=== PATIENT | female | born 1990 | race Caucasian/White ===

== ENCOUNTER 2020-05-18 08:54 | Emergency (ER) | payer OTHER ==
[~2020-05-18] VITALS: Ht 162.6 cm; Wt 82.7 kg
[2020-05-18] MEDS ORDERED: ACETAMINOPHEN 325 MG TABLET ONE (09:14)
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
[2020-05-18] MEDS ORDERED: ACETAMINOPHEN 325 MG TABLET PO ONE (09:30)
--- NOTE | 2020-05-18 10:00 | NUR ---
PT TO RADIOLOGY AT THIS TIME.
[2020-05-18 10:23] VITALS: BP 137/84
--- NOTE | 2020-05-18 11:25 | NUR ---
LATE ENTRY FOR 1125, D/T PATIENT CARE: SAMANTHA PASCAL AT BEDSIDE TO UPDATE PT WITH RESULTS AND POC, HEAD CT RESULTS DISCUSSED WITH PT BY SAMANTHA PASCAL.
[2020-05-18] MEDS ORDERED: KETOROLAC 30 MG/1 ML IM ONE (11:30)
[2020-05-18] MEDS ORDERED: METHOCARBAMOL 750 MG TABLET PO ONE (11:30)
[2020-05-18] MEDS ORDERED: KETOROLAC 30 MG/1 ML ONE (11:54)
[2020-05-18] MEDS ORDERED: METHOCARBAMOL 750 MG TABLET ONE (11:54)
--- NOTE | 2020-05-18 12:23 | NUR ---
PT MEDICATED PER EMAR, TOLERATED WELL. PT GIVEN DC INSTRUCTIONS AND SCRIPT, EDUCATED REGADRING RX FOR NAPROXEN AND ROBAXAN. PT IS A&O, RESPS EVEN AND UNLABORED, NSR ON R D INTERN WITH NO ECTOPY NOTED. PT AMBULATORY TO DC DESK WITH STEADY GAIT, ACCOMPANIED BY MOTHER WHO IS TO DRIVE HER HOME. PT EDUCATED NOT TO DRIVE TODAY D/T MED GIVEN.
== END 2020-05-18 12:18 | disposition home or self-care (01) ==
LOC: ED 09:51
DX: S39.012A Strain of muscle, fascia and tendon of lower back, initial encounter (principal); S29.012A Strain of muscle and tendon of back wall of thorax, initial encounter; S16.1XXA Strain of muscle, fascia and tendon at neck level, initial encounter; S09.90XA Unspecified injury of head, initial encounter; Z85.841 Personal history of malignant neoplasm of brain; V49.49XA Driver injured in collision with other motor vehicles in traffic accident, initial encounter; Y93.89 Activity, other specified; Y92.410 Unspecified street and highway as the place of occurrence of the external cause; Y99.8 Other external cause status
CPT/HCPCS: 70450; 72072; 72110; 72125; 96372; 99285; J1885

== ENCOUNTER 2021-03-03 20:47 | Outpatient (CLI) | payer OTHER ==
[~2021-03-03] VITALS: Ht 162.6 cm; Wt 100.9 kg
[2021-03-03] MEDS ORDERED: ACETAMINOPHEN 500 MG TABLET ONE (21:17)
[2021-03-03 21:29] VITALS: BP 141/85
[2021-03-03] MEDS ORDERED: ACETAMINOPHEN 500 MG TABLET PO PRN (21:30)
[2021-03-03] MEDS ORDERED: PLEASE ENTER HEIGHT AND WEIGHT MC SCH (21:30)
[2021-03-03 21:42] LABS: BASOPHILS % (AUTO) 1 % (0-1); EOSINOPHILS % (AUTO) 1 % (1-7); LYMPHOCYTES % (AUTO) 17 % (22-44); MONOCYTES % (AUTO) 8 % (2-9); NEUTROPHILS % (AUTO) 74 % (42-75); PLATELET COUNT 206 x10^3/uL (130-400); RED CELL DISTRIBUTION WIDTH 14.6 % (9.6-15.2)
[2021-03-03 21:49] LABS: ALANINE AMINOTRANSFERASE 23 U/L (12-78); ALBUMIN 2.4 g/dL (3.4-5.0); ANION GAP 9 mmol/L (5-15); BILIRUBIN, DIRECT 0.1 mg/dL (0.1-0.2); CALCIUM 8.9 mg/dL (8.5-10.1); CHLORIDE 109 mmol/L (98-107); CREATININE 0.72 mg/dL (0.55-1.02)
[2021-03-03 21:50] LABS: MICROSCOPIC INDICATED
[2021-03-03 21:51] LABS: ALKALINE PHOSPHATASE 87 U/L (45-117); BILIRUBIN,TOTAL 0.3 mg/dL (0.2-1.0); TOTAL PROTEIN 6.3 g/dL (6.4-8.2)
[2021-03-03] MEDS ORDERED: ONDANSETRON ODT 4 MG ONE (22:41)
[2021-03-03] MEDS ORDERED: ONDANSETRON ODT 4 MG PO ONE (23:00)
== END 2021-03-03 22:50 | disposition home or self-care (01) ==
LOC: LDOP 20:47
PROVIDERS: ATTEND Obstetrics & Gynecology
DX: O36.8130 Decreased fetal movements, third trimester, not applicable or unspecified (principal); R10.9 Unspecified abdominal pain; Z90.49 Acquired absence of other specified parts of digestive tract; Z3A.34 34 weeks gestation of pregnancy
CPT/HCPCS: 36415; 59025; 76815; 80053; 81001; 82248; 82570; 84156; 84550; 85025; 87086; Q0162

== ENCOUNTER 2021-04-05 09:48 | Inpatient (IN) | payer OTHER ==
[~2021-04-05] VITALS: Ht 162.6 cm; Wt 105.0 kg
[2021-04-06] MEDS ORDERED: TERBUTALINE 1 MG/ML, 1ML SQ PRN (03:30)
[2021-04-06] MEDS ORDERED: LACTATED RINGERS 1,000 ML IV SCH ×2 (03:30→11:30)
[2021-04-06] MEDS ORDERED: ONDANSETRON 2MG/ML, 2ML IVPush PRN ×2 (03:30→20:30)
[2021-04-06] MEDS ORDERED: FENTANYL PF 100 MCG/2ML IVPush PRN (03:30)
[2021-04-06] MEDS ORDERED: ALUMINUM/MAG/SIMETHICONE 30 ML UDC PO PRN (03:30)
[2021-04-06] MEDS ORDERED: FENTANYL PF 100 MCG/2ML IV PRN ×2 (03:30→20:30)
[2021-04-06] MEDS ORDERED: D5%-LACTATED RINGERS 1,000 ML IV SCH (03:30)
[2021-04-06] MEDS ORDERED: OXYTOCIN 30U/ 0.9% NaCL 500ML 500 ML IV PRN (03:30)
[2021-04-06] MEDS ORDERED: SODIUM CHLORIDE FLUSH 10ML SYR IVF PRN (03:30)
[2021-04-06] MEDS ORDERED: OXYTOCIN 30U/ 0.9% NaCL 500ML 500 ML IV ONE (03:30)
[2021-04-06] MEDS ORDERED: TERBUTALINE 1 MG/ML, 1ML IVPush PRN (03:30)
[2021-04-06] MEDS ORDERED: MISOPROSTOL 25 MCG TABLET VG PRN (03:30)
[2021-04-06] MEDS ORDERED: CALCIUM CARBONATE 500 MG TAB.CHEW PO PRN ×2 (03:30→22:00)
[2021-04-06] MEDS ORDERED: METOCLOPRAMIDE 5 MG/ML, 2ML IVPush PRN (03:30)
[2021-04-06 04:00] VITALS: BP 143/86
[2021-04-06] MEDS ORDERED: PLEASE ENTER HEIGHT AND WEIGHT MC SCH (04:00)
[2021-04-06] MEDS ORDERED: LIDOCAINE 1%, 20ML ONE (04:09)
[2021-04-06] MEDS ORDERED: NEWBORN KIT ONE (04:09)
[2021-04-06] MEDS ORDERED: MISOPROSTOL 25 MCG TABLET ONE (04:09)
[2021-04-06] MEDS ORDERED: MISOPROSTOL 200 MCG TABLET ONE (04:10)
[2021-04-06] MEDS ORDERED: OXYTOCIN 30U/ 0.9% NaCL 500ML 500 ML ONE (04:10)
[2021-04-06 04:15] LABS: BASOPHILS % (AUTO) 0 % (0-1); EOSINOPHILS % (AUTO) 1 % (1-7); LYMPHOCYTES % (AUTO) 16 % (22-44); MEAN CORPUSCULAR HEMOGLOBIN 30.1 pg (27.0-34.8); MEAN CORPUSCULAR HGB CONC 33.4 g/dL (32.4-35.8); MEAN PLATELET VOLUME 8.5 fL (7.4-10.4); MONOCYTES % (AUTO) 8 % (2-9); NEUTROPHILS % (AUTO) 75 % (42-75); PLATELET COUNT 206 x10^3/uL (130-400); RED BLOOD COUNT 4.63 x10^6/uL (3.82-5.3); RED CELL DISTRIBUTION WIDTH 15.6 % (9.6-15.2)
[2021-04-06] MEDS ORDERED: FENTANYL/BUPIV./NS/PF 250 ML EPIDCONT SCH (11:30)
[2021-04-06] MEDS ORDERED: EPHEDRINE 50 MG/ML, 1ML IVPush PRN ×2 (11:30→20:30)
[2021-04-06] MEDS ORDERED: LACTATED RINGERS 1,000 ML IVBOLUS PRN (11:30)
[2021-04-06] MEDS ORDERED: NALOXONE 0.4 MG/ML, 1ML IVPush PRN (11:30)
[2021-04-06] MEDS ORDERED: FENTANYL/BUPIV./NS/PF 250 ML EPIDCONT ONE (11:32)
[2021-04-06] MEDS ORDERED: BUPIVACAINE 0.25% ONE (11:32)
[2021-04-06] MEDS ORDERED: SODIUM CITRATE/CITRIC ACID 15 ML UDC ONE (20:22)
[2021-04-06] MEDS ORDERED: hydrALAzine 20 MG/ML, 1ML IV PRN (20:30)
[2021-04-06] MEDS ORDERED: METOPROLOL 1 MG/ML, 5ML IV PRN (20:30)
[2021-04-06] MEDS ORDERED: MIDAZOLAM 1 MG/ML, 2ML IV PRN (20:30)
[2021-04-06] MEDS ORDERED: HYDROcodone/APAP 7.5-325MG/15ML UDC PO PRN (20:30)
[2021-04-06] MEDS ORDERED: PROMETHAZINE 25 MG/ML, 1ML IV PRN (20:30)
[2021-04-06] MEDS ORDERED: OXYcodone 5 MG/5 ML ORAL.SOL UDC PO PRN (20:30)
[2021-04-06] MEDS ORDERED: LABETALOL 5MG/ML, 20ML IV PRN (20:30)
[2021-04-06] MEDS ORDERED: HYDROmorphone 2 MG/ML, 1ML IVPush PRN (20:30)
[2021-04-06] MEDS ORDERED: ALBUTEROL SULFATE 2.5 MG/3 ML NPPB PRN (20:30)
[2021-04-06] MEDS ORDERED: MEPERIDINE/PF 25MG/0.5ML IVPush PRN (20:30)
[2021-04-06] MEDS ORDERED: MISOPROSTOL 200 MCG TABLET PR PRN (22:00)
[2021-04-06] MEDS ORDERED: AZITHROMYCIN 500 MG in SODIUM CHLORIDE 0.9% 250 ML IV ONE (22:00)
[2021-04-06] MEDS ORDERED: METOCLOPRAMIDE 5 MG/ML, 2ML IV ONE (22:00)
[2021-04-06] MEDS ORDERED: LACTATED RINGERS 1,000 ML IVBOLUS ONE (22:00)
[2021-04-06] MEDS ORDERED: OXYcodone/APAP 5/325MG TABLET PO PRN (22:00)
[2021-04-06] MEDS ORDERED: SODIUM CITRATE/CITRIC ACID 30 ML UDC PO ONE (22:00)
[2021-04-06] MEDS ORDERED: ONDANSETRON 2MG/ML, 2ML IV PRN (22:00)
[2021-04-06] MEDS ORDERED: DIPH,PERTUSS(ACELL),TET VAC/PF NC IM-VACC PRN (22:00)
[2021-04-06] MEDS ORDERED: morphine SULFATE 10 MG/ML, 1ML IM PRN (22:00)
[2021-04-06] MEDS ORDERED: ACETAMINOPHEN 325 MG TABLET PO PRN (22:00)
[2021-04-06] MEDS: LACTATED RINGERS 1,000 ML IV SCH (22:00)
[2021-04-06] MEDS ORDERED: MORPHINE SULFATE 4 MG/ML, 1ML IVPush PRN (22:00)
[2021-04-06] MEDS ORDERED: MEASLES,MUMPS&RUBELLA VACC/PF 0.5 ML SQ-VACC PRN (22:00)
[2021-04-06] MEDS ORDERED: OXYTOCIN 10 UNITS/ML, 1ML ONE (22:06)
[2021-04-06] MEDS ORDERED: PROPOFOL 10 MG/ML, 20ML ONE (22:06)
[2021-04-06] MEDS ORDERED: DEXAMETHASONE 4 MG/ML, 1ML ONE (22:06)
[2021-04-06] MEDS ORDERED: KETOROLAC 30 MG/1 ML ONE (22:06)
[2021-04-06] MEDS ORDERED: ONDANSETRON 2MG/ML, 2ML ONE (22:06)
[2021-04-06] MEDS ORDERED: CEFAZOLIN 1,000 MG ONE (22:06)
[2021-04-06] MEDS ORDERED: PHENYLEPHRINE 10 MG/ML ONE (22:06)
[2021-04-06] MEDS ORDERED: EPHEDRINE 50 MG/ML, 1ML ONE (22:06)
[2021-04-06] MEDS ORDERED: SUCCINYLCHOLINE 20 MG/ML, 10ML ONE (22:06)
[2021-04-06] MEDS ORDERED: FENTANYL PF 100 MCG/2ML ONE ×2 (22:07)
[2021-04-06] MEDS ORDERED: HYDROmorphone 2 MG/ML, 1ML ONE (22:56)
[2021-04-06 23:47] LABS: BASOPHILS % (AUTO) 1 % (0-1); EOSINOPHILS % (AUTO) 0 % (1-7); LYMPHOCYTES % (AUTO) 4 % (22-44); MEAN PLATELET VOLUME 8.2 fL (7.4-10.4); MONOCYTES % (AUTO) 5 % (2-9); NEUTROPHILS % (AUTO) 90 % (42-75); PLATELET COUNT 178 x10^3/uL (130-400); RED BLOOD COUNT 3.88 x10^6/uL (3.82-5.3)
[2021-04-06 23:58] LABS: ALANINE AMINOTRANSFERASE 16 U/L (12-78); ALBUMIN 1.7 g/dL (3.4-5.0); ANION GAP 9 mmol/L (5-15); BILIRUBIN, DIRECT 0.2 mg/dL (0.1-0.2); CALCIUM 7.6 mg/dL (8.5-10.1); CHLORIDE 110 mmol/L (98-107); CREATININE 1.46 mg/dL (0.55-1.02)
[2021-04-07 00:01] LABS: ALKALINE PHOSPHATASE 102 U/L (45-117); BILIRUBIN,TOTAL 0.5 mg/dL (0.2-1.0); TOTAL PROTEIN 4.9 g/dL (6.4-8.2)
[2021-04-07] MEDS ORDERED: TRANEXAMIC ACID 100 MG/ML, 10ML ONE (00:21)
[2021-04-07] MEDS ORDERED: TRANEXAMIC ACID 100 MG/ML, 10ML TP ONE (00:30)
[2021-04-07] MEDS: OXYTOCIN 30U/ 0.9% NaCL 500ML 500 ML IV SCH ×3 (00:30→18:00)
[2021-04-07] MEDS: LACTATED RINGERS 1,000 ML IV SCH ×6 (00:30→22:00)
[2021-04-07 00:48] LABS: MICROSCOPIC INDICATED
[2021-04-07] MEDS: KETOROLAC 30 MG/1 ML IV SCH ×5 (05:28→23:37)
[2021-04-07 06:55] LABS: MEAN CORPUSCULAR HEMOGLOBIN 30.5 pg (27.0-34.8); MEAN CORPUSCULAR HGB CONC 33.6 g/dL (32.4-35.8); MEAN PLATELET VOLUME 8.6 fL (7.4-10.4); PLATELET COUNT 164 x10^3/uL (130-400); RED BLOOD COUNT 3.47 x10^6/uL (3.82-5.3); RED CELL DISTRIBUTION WIDTH 15.2 % (9.6-15.2)
[2021-04-07 07:07] LABS: ALANINE AMINOTRANSFERASE 15 U/L (12-78); ALBUMIN 1.6 g/dL (3.4-5.0); ANION GAP 11 mmol/L (5-15); CALCIUM 7.7 mg/dL (8.5-10.1); CHLORIDE 110 mmol/L (98-107)
[2021-04-07 07:10] LABS: ALKALINE PHOSPHATASE 91 U/L (45-117); BILIRUBIN,TOTAL 0.6 mg/dL (0.2-1.0); CREATININE 1.04 mg/dL (0.55-1.02); TOTAL PROTEIN 4.9 g/dL (6.4-8.2)
[2021-04-07 07:56] LABS: BAND#(MANUAL) 2.05 x10^3/uL; BANDS%(MANUAL) 12 % (0-7); LYMPH#(MANUAL) 0.51 x10^3/uL (1-3.4); LYMPHS% (MANUAL) 3 % (22-44); MONOS#(MANUAL) 0.51 x10^3/uL (0.3-2.7); MONOS% (MANUAL) 3 % (2-9); SEG#(MANUAL) 14.02 x10^3/uL (1.8-6.8); SEGS% (MANUAL) 82 % (42-75)
[2021-04-07 07:57] LABS: <PLATELET ESTIMATE> ADEQUATE; <PLT MORPHOLOGY> NORMAL PLT MORPH; <RBC MORPHOLOGY> NORMAL
[2021-04-07] MEDS: DOCUSATE 100 MG CAPSULE PO PRN (08:46)
[2021-04-07] MEDS: OXYcodone/APAP 5/325MG TABLET PO PRN ×2 (08:47→20:49)
[2021-04-07] MEDS: PRENATAL VIT/IRON/FA 1 EACH TABLET PO SCH (09:00)
[2021-04-07 12:10] VITALS: BP 128/64
[2021-04-07 16:15] VITALS: BP 124/84
[2021-04-07 20:45] VITALS: BP 122/83
[2021-04-07] MEDS: SIMETHICONE 80 MG CHEW TAB PO PRN (20:49)
[2021-04-08] MEDS: ACETAMINOPHEN 325 MG TABLET PO PRN ×2 (02:00→13:11)
[2021-04-08] MEDS: LACTATED RINGERS 1,000 ML IV SCH ×4 (04:00→14:00)
[2021-04-08] MEDS: OXYTOCIN 30U/ 0.9% NaCL 500ML 500 ML IV SCH ×2 (04:00→14:00)
[2021-04-08] MEDS: KETOROLAC 30 MG/1 ML IV SCH (05:32)
[2021-04-08] MEDS: SIMETHICONE 80 MG CHEW TAB PO PRN ×2 (05:32→13:47)
[2021-04-08 07:30] VITALS: BP 107/70
[2021-04-08] MEDS: DOCUSATE 100 MG CAPSULE PO PRN (09:09)
[2021-04-08] MEDS: PRENATAL VIT/IRON/FA 1 EACH TABLET PO SCH (09:09)
[2021-04-08] MEDS ORDERED: IBUP-1222 PO ×2 (12:12→12:27)
[2021-04-08] MEDS ORDERED: DOCU-131 PO ×2 (12:13→12:27)
[2021-04-08] MEDS ORDERED: OXYC1TAB12 PO ×2 (12:15→12:27)
[2021-04-08] MEDS ORDERED: IBUPROFEN 600 MG TABLET ONE (13:07)
[2021-04-08 13:29] VITALS: BP 116/65
[2021-04-08] MEDS ORDERED: IBUPROFEN 600 MG TABLET PO PRN ×2 (13:30→22:00)
== END 2021-04-08 16:25 | disposition home or self-care (01) | DRG 788 ==
LOC: LDIP 04-06 01:06 → 2NE 04-07 01:21 → 2NW 04-07 11:00
PROVIDERS: ADMIT Obstetrics & Gynecology; ATTEND Obstetrics & Gynecology
PROC: 10D00Z1 Extraction of Products of Conception, Low, Open Approach (ICD-10-PCS; principal; 2021-04-06)
PROC: 10907ZC Drainage of Amniotic Fluid, Therapeutic from Products of Conception, Via Natural or Artificial Opening (ICD-10-PCS; 2021-04-06)
PROC: 10H07YZ Insertion of Other Device into Products of Conception, Via Natural or Artificial Opening (ICD-10-PCS; 2021-04-06)
PROC: 3E0234Z Introduction of Serum, Toxoid and Vaccine into Muscle, Percutaneous Approach (ICD-10-PCS; 2021-04-06)
DX: O69.1XX0 Labor and delivery complicated by cord around neck, with compression, not applicable or unspecified (principal); O62.0 Primary inadequate contractions; O14.04 Mild to moderate pre-eclampsia, complicating childbirth; O77.0 Labor and delivery complicated by meconium in amniotic fluid; O62.2 Other uterine inertia; O13.4 Gestational [pregnancy-induced] hypertension without significant proteinuria, complicating childbirth; Z20.822 Contact with and (suspected) exposure to COVID-19; Z23 Encounter for immunization; Z37.0 Single live birth; Z3A.39 39 weeks gestation of pregnancy; Z90.49 Acquired absence of other specified parts of digestive tract; Z88.0 Allergy status to penicillin; Z91.041 Radiographic dye allergy status
CPT/HCPCS: 36415; J7121; 80053; 81001; 82248; 82570; 84156; 84550; 85025; 86592; 86850; 86900; 87635; G0378; J0456; J0690; J1100; J1170; J1885; J2405; J2704; J3010; J0330; J2370; J2590; J2765; J7050; J7120

== ENCOUNTER 2021-04-15 12:57 | Emergency (ER) | payer OTHER ==
[~2021-04-15] VITALS: Ht 162.6 cm; Wt 101.4 kg
[~2021-04-15 12:57] MED LIST: DOCU-131 PO; IBUP-1222 PO; OXYC1TAB12 PO
[2021-04-15 13:32] LABS: BASOPHILS % (AUTO) 1 % (0-1); EOSINOPHILS % (AUTO) 3 % (1-7); LYMPHOCYTES % (AUTO) 14 % (22-44); MEAN CORPUSCULAR HEMOGLOBIN 30.1 pg (27.0-34.8); MEAN CORPUSCULAR HGB CONC 33.6 g/dL (32.4-35.8); MEAN PLATELET VOLUME 7.2 fL (7.4-10.4); MONOCYTES % (AUTO) 5 % (2-9); NEUTROPHILS % (AUTO) 78 % (42-75); PLATELET COUNT 355 x10^3/uL (130-400); RED BLOOD COUNT 3.66 x10^6/uL (3.82-5.3); RED CELL DISTRIBUTION WIDTH 15.2 % (9.6-15.2)
[2021-04-15 13:39] LABS: ALANINE AMINOTRANSFERASE 24 U/L (12-78); ALBUMIN 2.8 g/dL (3.4-5.0); ANION GAP 6 mmol/L (5-15); CALCIUM 8.5 mg/dL (8.5-10.1); CHLORIDE 109 mmol/L (98-107); CREATININE 0.97 mg/dL (0.55-1.02)
[2021-04-15 13:41] LABS: ALKALINE PHOSPHATASE 80 U/L (45-117); BILIRUBIN,TOTAL 0.4 mg/dL (0.2-1.0); TOTAL PROTEIN 7.1 g/dL (6.4-8.2)
[2021-04-15 15:27] VITALS: BP 130/78
--- NOTE | 2021-04-15 15:29 | NUR ---
PT UP FOR DC, AWAITING [facility]. MIGUEL BARRIGA. FAMILY AT BEDSIDE.
--- NOTE | 2021-04-15 16:07 | NUR ---
Patient given discharge instructions and they have confirmed that they understand the instructions. Patient ambulatory with steady gait.
== END 2021-04-15 16:12 | disposition home or self-care (01) ==
LOC: ED 16:05
DX: N93.9 Abnormal uterine and vaginal bleeding, unspecified (principal); R06.00 Dyspnea, unspecified; F41.1 Generalized anxiety disorder; R00.0 Tachycardia, unspecified; R06.02 Shortness of breath; Z88.0 Allergy status to penicillin
CPT/HCPCS: 36415; 71045; 80053; 84702; 85025; 86850; 86900; 93005; 99285